=== PATIENT | female | born 1995 | race Caucasian/White ===

== ENCOUNTER 2017-02-24 03:29 | Emergency (ER) | payer SELFPAY ==
[2017-02-24 03:42] VITALS: BP 130/76; PULSE 116; O2SAT 98
[2017-02-24] MEDS ORDERED: XYLOCAINE HCl Viscous MM PRN (03:52)
[2017-02-24] MEDS ORDERED: Marcaine 0.5%/Epinephrine 10 ML IJ ONE (03:53)
[2017-02-24] MEDS ORDERED: AMOXIL 500 MG PO ONE (03:53)
--- NOTE | 2017-02-24 04:00 | ERPHSYRPT ---
- History of Present Illness Time Seen by Provider: 02/24/17 03:39 Source: patient, family () Patient Subjective Stated Complaint: Tooth and facial pain Triage Nursing Assessment: Left upper tooth pain, radiating into right side of face. Onset of complaint 4 days ago, worse with movement. Physician History: CC: toothache Hx: Right upper molar toothache for one year. Worse. Throbbing. Can not sleep. Went to a dentist a while back but did not get it pulled. Did not follow up on HIP so denied insurance for a year. No fever. Pain severe. Severity: severe ENT Location: facial (right), dental Allergies/Adverse Reactions: lavender (Lavandula angustifolia) Allergy (Intermediate, Verified 02/24/17 03:46 ) Hives Hx Tetanus, Diphtheria Vaccination/Date Given: No Hx Influenza Vaccination/Date Given: No Hx Pneumococcal Vaccination/Date Given: No Immunizations Up to Date: No - Review of Systems Constitutional: No Fever, No Chills Ears, Nose, & Throat: Mouth Pain, No Mouth Swelling, No Throat Pain, No Throat Swelling Respiratory: No Dyspnea Abdominal/Gastrointestinal: No Nausea, No Vomiting Skin: No Cellulitis - Past Medical History Pertinent Past Medical History: Yes Neurological History: No Pertinent History ENT History: No Pertinent History Cardiac History: No Pertinent History Respiratory History: No Pertinent History Endocrine Medical History: No Pertinent History Musculoskeletal History: No Pertinent History GI Medical History: No Pertinent History History: No Pertinent History Psycho-Social History: Anxiety, Depression Female Reproductive Disorders: Abnormal Uterine Bleeding - Past Surgical History Past Surgical History: No Neuro Surgical History: No Pertinent History Cardiac: No Pertinent History Respiratory: No Pertinent History Gastrointestinal: No Pertinent History Genitourinary: No Pertinent History Musculoskeletal: No Pertinent History Female Surgical History: No Pertinent History - Social History Smoking Status: Current every day smoker How long have you smoked: 5 Exposure to second hand smoke: Yes Drug Use: none Patient Lives Alone: No - Female History Hx Last Menstrual Period: 02/08/2017 Hx Now: No - Nursing Vital Signs Nursing Vital Signs: Initial Vital Signs Temperature 99.7 F 02/24/17 03:36 Pulse Rate 116 H 02/24/17 03:36 Respiratory Rate 15 02/24/17 03:36 Blood Pressure 130/76 02/24/17 03:36 O2 Sat by Pulse Oximetry 98 02/24/17 03:36 Pain Scale Pain Intensity 9 - Physical Exam General Appearance: alert Eye Exam: bilateral eye: PERRL, EOMI Cardiovascular/Respiratory Exam: regular rate/rhythm Neurologic Exam: alert, oriented x 3, cooperative Skin Exam: warm, dry, rash SpO2 Interpretation: normal SpO2: 98 Oxygen Delivery: Room Air Comments: Right upper 1st molar is discolored, tender. No other caries. No trismus. No facial cellulitis. - Course Nursing assessment & vital signs reviewed: Yes Ordered Tests: Medication Summary Generic Name Dose Route Start Last Admin Trade Name Freq PRN Reason Stop Dose Admin Lidocaine HCl 5 ml 02/24/17 03:52 02/24/17 03:58 Xylocaine Hcl Viscous * MM 03/26/17 03:51 5 ml PRN PRN Administration dental block Discontinued Medications Generic Name Dose Route Start Last Admin Trade Name Freq PRN Reason Stop Dose Admin Hydrocodone Bitart/Acetaminophen 2 tab 02/24/17 04:20 02/24/17 04:26 Shokan 5/325 Mg PO 02/24/17 04:21 2 tab STAT ONE Administration Amoxicillin 500 mg 02/24/17 03:53 02/24/17 03:58 Amoxil 500 Mg PO 02/24/17 03:54 500 mg STAT ONE Administration Bupivacaine HCl/Epinephrine Bitart 5 ml 02/24/17 03:53 02/24/17 03:58 Marcaine 0.5%/Epinephrine 10 Ml IJ 02/24/17 03:54 10 ml STAT ONE Administration - Progress Progress Note: 02/24/17 04:00 Discussed need for dental follow up. She desires dental block here. 02/24/17 04:26 2ml 0.5% bupivicaine with epi used for alveolar dental block right upper 1st molar. Tolerated well. Post block toothache gone but some headache remains. No nuchal rigidity. Advised dental follow up. Counseled pt/family regarding: diagnosis, need for follow-up - Departure Time of Disposition: 04:28 Departure Disposition: Home Clinical Impression: Toothache Condition: Stable Critical Care Time: No Referrals: DOCTOR,NO FAMILY [Primary Care Provider] - Instructions: Dental Pain Additional Instructions: No driving today or while taking pain medication. Rx amoxil. Rx norco. See dentist as soon possible. Prescriptions: Hydrocodone Bit/Acetaminophen [Shokan 5-325 Tablet] 1 each PO Q6H PRN PRN #15 tablet PRN Reason: Pain Amoxicillin 500 mg Cap [Amoxil 500 mg] 1 cap PO TID #30 capsule
[2017-02-24] MEDS ORDERED: NORCO 5/325 MG PO ONE (04:20)
[2017-02-24] MEDS ORDERED: NORCO 5/325 MG ONE (04:24)
[2017-02-24] MEDS ORDERED: AMOXIL 500 MG ONE (06:05)
[2017-02-24] MEDS ORDERED: XYLOCAINE HCl Viscous ONE (06:05)
[2017-02-24] MEDS ORDERED: Marcaine 0.5%/Epinephrine 10 ML ONE (06:06)
== END 2017-02-24 05:06 | disposition home or self-care (01) ==
LOC: ED 03:29
DX: K08.89 Other specified disorders of teeth and supporting structures (principal)
CPT/HCPCS: 99284; A9270-GY